=== PATIENT | male | born 1965 | race Caucasian/White ===

== ENCOUNTER 2024-06-10 00:10 | Emergency (ER) | payer SELFPAY ==
[2024-06-10] MEDS ORDERED: LIDOCAINE HCL 1% LOCAL INJ 20 ML VIAL INJ STA (00:15)
[2024-06-10] MEDS ORDERED: SODIUM CHLORIDE 0.9% 1000ML 1,000 ML IV STA (00:22)
== END 2024-06-10 00:31 | disposition short-term general hospital (02) ==
LOC: ER 00:26
DX: I49.9 Cardiac arrhythmia, unspecified (principal)